=== PATIENT | male | born 1970 | race Caucasian/White ===

== ENCOUNTER 2024-07-30 16:35 | Emergency (ER) | payer BC, SELFPAY ==
[2024-07-30 16:39] VITALS: BP 147/78
[2024-07-30 16:57] LABS: % Basophils 0.4 % (0-2); % Eosinophils 0.1 % (0-6); % Immature Granulocytes 0.4 % (0-0.5); % Lymphocytes 13.3 % (20.5-51.1); % Monocytes 5.9 % (1.7-9.3); % Neutrophils 79.9 % (42.2-75.2); Absolute Lymphocytes 1.1 10^3/uL (1.2-3.4); Absolute Monocytes 0.5 10^3/uL (0.1-0.6); Absolute Neutrophils 6.7 10^3/uL (1.4-6.5); Hematocrit 46.2 % (39.0-52.0); Hemoglobin 16.5 g/dL (13.0-18.0); Mean Corp Hgb Conc. 35.7 g/dL (33.0-37.0); Mean Corpuscular Hgb 35.3 pg (27.0-31.0); Mean Corpuscular Volume 98.7 fL (80.0-94.0); Mean Platelet Volume 8.6 fL (7.4-10.4); Nucleated Red Blood Cells % 0 % (-); Platelet Count 197 10^3/uL (130-400); Red Blood Cell Count 4.68 10^6/uL (4.70-6.10); Red Cell Dist. Width 13.4 % (11.5-14.5); White Blood Cell Count 8.4 10^3/uL (4.8-10.8)
[2024-07-30 17:09] LABS: ALT (SGPT) 28 U/L (0-50); AST (SGOT) 49 U/L (17-59); Albumin 3.3 g/dl (3.5-5.0); Alkaline Phosphatase 120 U/L (38-126); Blood Urea Nitrogen 3 mg/dl (9-20); Calcium 8.5 mg/dl (8.4-10.2); Carbon Dioxide 24 mmol/L (22-30); Chloride 105 mmol/L (98-107); Glucose 102 mg/dl (70-99); Lipase 77 U/L (23-300); Potassium 4.1 mmol/L (3.5-5.1); Sodium 141 mmol/L (135-145); Total Bilirubin 0.7 mg/dl (0.2-1.3); Total Protein 5.8 g/dl (6.3-8.2); eGFR > 60.00
[2024-07-30 17:22] LABS: NT-proBNP 62.4 pg/ml; Troponin I < 0.012 ng/ml
--- NOTE | 2024-07-30 17:56 | ED.GENMED ---
History of Present Illness
General
Chief Complaint: Abnormal Lab Value
Source: patient and spouse
Exam Limitations: none
Time Seen by Provider: 07/30/24 17:15
Nursing documentation reviewed up to this point in time: agreed with
History of Present Illness
History of Present Illness:
53-year-old male past ministry of alcohol abuse, does not follow-up regularly with a primary care doctor presenting to the emergency department today with concerns of a low calcium [facility] This was repeated here prior to my
assessment which was a normal calcium level. Is additional concern that prompted him to go to the urgent care in the first place was leg swelling. He claims that this has been ongoing over the past few days. His legs are not red or warm and there
is no pain they are symmetrically swollen. Denies any chest pain shortness of breath nausea vomiting.
Past History
Past History
ED Past Medical History: None
ED Past Surgical History: None
Social History
Tobacco: Smoker
Alcohol: Occasional
Drug: None
Personal:
Living: alone
Employment: Employed
Family History
Family History: Other (Noncontributory)
Review of Systems
Review of Systems
Allergies reviewed?: Yes
All Other Systems: ROS reviewed and negative except as documented in HPI and ROS
Phy Exam
Physical Exam
Physical Exam:
GENERAL: Alert , in no apparent distress
EYE: pupils equal and reactive
NECK: Supple, no significant adenopathy.
ENT: o/p clr, mmm.
CARDIAC: Regular rate and rhythm .
LUNGS: Clear breath sounds bilaterally, no acute respiratory distress, no wheezes/rales/rhonchi
ABDOMEN: Soft, without focal tenderness, no r/g, no cvat
NEUROLOGICAL: Alert and oriented, no focal neuro deficits
SKIN: Warm and dry, skin intact.
MUSCULOSKELETAL: , well perfused.
PSYCH: Normal and appropriate interaction.
+2 pitting edema distal to the knees bilaterally and symmetrically
Course
Orders/Labs/Results
Orders:
Orders
07/30/24 16:44
Electrocardiogram (*1) Urgent
Reason for Study: Abdominal Pain
EKG- Treatment ONCE
07/30/24 16:51
Complete Blood Count/With Diff Urgent
Comprehensive Metabolic Panel Urgent
Lipase Urgent
Magnesium Urgent
Comment: ADD ON
NT-proBNP Urgent
Troponin I Urgent
07/30/24 17:16
Add On- LAB Urgent
Tests Added?: magnesium
07/30/24 17:24
Chest [CR Chest - 2 Views ] Urgent
Comment:
Reason For Exam: swelling, cough
Abnormal Lab Results
07/30/24
16:51
RBC 4.68 L 10^6/uL
(4.70-6.10)
MCV 98.7 H fL
(80.0-94.0)
MCH 35.3 H pg
(27.0-31.0)
Absolute Neuts (auto) 6.7 H 10^3/uL
(1.4-6.5)
Absolute Lymphs (auto) 1.1 L 10^3/uL
(1.2-3.4)
Neutrophils % 79.9 H %
(42.2-75.2)
Lymphocytes % 13.3 L %
(20.5-51.1)
BUN 3 L mg/dl
(9-20)
Glucose 102 H mg/dl
(70-99)
Total Protein 5.8 L g/dl
(6.3-8.2)
Albumin 3.3 L g/dl
(3.5-5.0)
07/30/24 16:51
07/30/24 16:51
Vital Signs
Initial and Last Documented VS:
Initial Vital Signs
Temp Pulse Resp BP Pulse Ox
98.2 F 123 16 147/78 98
07/30/24 16:39 07/30/24 16:39 07/30/24 16:39 07/30/24 16:39 07/30/24 16:39
Last Documented Vital Signs
Temp Pulse Resp BP Pulse Ox
98.2 F 123 16 147/78 98
07/30/24 16:39 07/30/24 16:39 07/30/24 16:39 07/30/24 16:39 07/30/24 16:39
MDM/Problems Addressed
MDM/Problems Addressed:
53-year-old male presenting to the emergency department today with concerns of low calcium level at [facility] normal here. His main concern was leg swelling over the past few days denies any history of this. No known history of heart disease
venous stasis. It symmetrical bilaterally no redness or warmth does not appear to be consistent with DVT. No specific medication changes or exposures. No itchiness. No redness or warmth no findings consistent with infection or cellulitis.
Patient was somewhat tachycardic upon arrival but this seemed to improved without specific treatment. He claims that he typically gets very anxious in the hospital. EKG did not show emergent findings. BNP was not elevated troponin negative.
Patient generally well-appearing initial tachycardia was in sinus rhythm. He claims that he gets very anxious in the hospital. He was placed on the monitor here and heart rate was improving into the 90s without any specific treatment. Otherwise
patient appears stable for close outpatient follow-up. It was stressed the importance of very close outpatient follow-up he was started on a small dose of Lasix and given information for primary care as well as cardiology follow-up.
*Critical Care Note
Total Time (30-74mins, 75-104mins- exclusive of procedures): Not Applicable
ED Attending Note
-
Portions of this chart may have been created with voice recognition software.� Occasional wrong word or��sound alike� substitutions may have occurred due to the inherent limitations of voice recognition software.
Discharge Plan
Departure
Patient Disposition: Home (Routine Discharge)
Date of Disposition: 07/30/24
Time of Disposition: 18:56
Patient with high blood pressure during this ER visit?: No
Condition: Good
Covid-19: Not Applicable
Discharge Problem:
Edema, peripheral
Instructions: Swelling
Prescriptions:
New
furosemide [Lasix] 20 mg tablet
10 mg PO DAILY 14 Days Qty: 7 0RF
Referrals:
[facility] [Provider Group] - Follow up in 2-3 days
UNKNOWN - PT DOES,NOT KNOW [Family Provider] -
Benigno Abdul, [Active] - Follow up in 10 days
Activity Restrictions/Additional Instructions:
You came to the emergency department today with concerns of leg swelling. Here had a reassuring assessment. Please follow-up closely with cardiology as well as the primary care doctor. Return to the emergency department for any worsening, new or
concerning symptoms. Please take Lasix 10 mg daily until follow-up for further reassessment.
Interventions
Interventions:
*Risk Screen - Suicide Last Done: 07/30/24 16:39
*Neglect/Abuse Screening Last Done: 07/30/24 16:39
Discharge Date and Time
Print Language: SPANISH
[2024-07-30 18:08] LABS: Magnesium 1.8 mg/dl (1.6-2.3)
== END 2024-07-30 19:10 | disposition home or self-care (01) ==
LOC: EMR 16:35
PROVIDERS: Emergency Medicine; EMERGENCY PHYSICIAN Emergency Medicine
DX: R60.0 Localized edema (principal); F17.200 Nicotine dependence, unspecified, uncomplicated
CPT/HCPCS: 99285; 71046; 80053; 83690; 83735; 83880; 84484; 85025; 93005